=== PATIENT | male | born 2000 | race Two or more races ===

== ENCOUNTER 2025-10-12 08:56 | Emergency (ER) | payer BC, SELFPAY ==
[2025-10-12 09:00] VITALS: BP 128/85
[2025-10-12 09:59] VITALS: BMI 23.0
[2025-10-12] MEDS: ATIVAN 1 MG PO (10:35)
--- NOTE | 2025-10-12 11:59 | ED.GENMED ---
History of Present Illness
General
Chief Complaint: Crisis Evaluation
Source: patient
Exam Limitations: none
Time Seen by Provider: 10/12/25 09:11
Nursing documentation reviewed up to this point in time: agreed with
History of Present Illness
History of Present Illness:
Pt presents to ED secondary to suicidal ideation with plan, including possibly hanging himself. Pt states that he feels depressed after break up with his girlfriend. Denies homicidal ideation. Pt otherwise without any other complaints. Denies recent
illness. Denies previous history of similar symptoms.
Review of Systems
Review of Systems
Allergies reviewed?: Yes
All Other Systems: ROS reviewed and negative except as documented in HPI and ROS
Constitutional: Reports no symptoms
Musculoskeletal: Reports no symptoms
Skin: Reports no symptoms
Neurological: Reports no symptoms
Psychiatric: Reports depression and suicidal
Phy Exam
Physical Exam
Physical Exam:
General: well nourished male, in no acute distress. afebrile
Heent: nc/at. eomi
Heart: rrr
Lungs: cta
Abd: soft and nontender
Neuro: aao x 3. no focal neurological deficit.
Psych: pleasant and cooperative
Course
Orders/Labs/Results
Orders:
Orders
10/12/25 09:05
1:1 Observation - Suicide/ Violent Behavior As Directed
10/12/25 09:36
Crisis Consult Urgent
Reason for Consult: suicidal ideation
10/12/25 09:58
Lorazepam [Ativan] 1 mg PO NOW STA
10/12/25 10:40
Drug Screen, Urine [Urine Drug Abuse Screen] Urgent
Date Specimen was Collected: 10/12/25
Time Specimen was Collected: 10:38
Vital Signs
Initial and Last Documented VS:
Initial Vital Signs
Temp Pulse Resp BP Pulse Ox
99.1 F 63 16 128/85 98
10/12/25 09:00 10/12/25 09:00 10/12/25 09:00 10/12/25 09:00 10/12/25 09:00
Last Documented Vital Signs
Temp Pulse Resp BP Pulse Ox
99.1 F 63 16 128/85 98
10/12/25 09:00 10/12/25 09:00 10/12/25 09:00 10/12/25 09:00 10/12/25 11:59
MDM/Problems Addressed
MDM/Problems Addressed:
Pt evaluated by [facility] social service worker. Pt without any medical concerns. Pt medically cleared for transfer to in-patient psychiatric facility for further evaluation and treatment
*Pulse Oximetry
SaO2: 98
Oxygen Mode of Delivery: Room air
Patient hypoxic: no
*Critical Care Note
Total Time (30-74mins, 75-104mins- exclusive of procedures): Not Applicable
ED Attending Note
-
Portions of this chart may have been created with voice recognition software.� Occasional wrong word or��sound alike� substitutions may have occurred due to the inherent limitations of voice recognition software.
Discharge Plan
Departure
Patient Disposition: Psych Facility
Date of Disposition: 10/12/25
Time of Disposition: 11:59
Patient Status:: 201
Discharge Problem:
Suicidal ideation
Referrals:
NONE,* [Family Provider, Internal Medicine]
Interventions
Interventions:
*General Assessment Last Done: 10/12/25 09:59
*Neglect/Abuse Screening Last Done: 10/12/25 09:00
*ED COVID-19 Vaccine History Last Done: 10/12/25 09:59
*ED Influenza Vaccine History Last Done: 10/12/25 09:59
*Risk Screen - Suicide (C-SSRS) Last Done: 10/12/25 09:00
*Nursing Disposition Last Done: 10/12/25 15:30
ED-Psychological Assessment Last Done: 10/12/25 09:59
Discharge Date and Time
Discharge Date/Time: 10/12/25 16:59
Print Language: DUTCH
== END 2025-10-12 16:59 ==
LOC: EMR 08:56
PROVIDERS: EMERGENCY PHYSICIAN Emergency Medicine
DX: R45.851 Suicidal ideations (principal)
CPT/HCPCS: 99285; 80306